=== PATIENT | female | born 1995 | race Caucasian/White ===

== ENCOUNTER 2022-12-29 23:20 | Emergency (ER) | payer OTHER, SELFPAY ==
[2022-12-29 23:21] VITALS: BP 118/89; PULSE 119; RESP 19; TEMP 36.8; O2SAT 100; BMI 25.4
[2022-12-29 23:33] VITALS: BP 152/92; PULSE 104; RESP 14; O2SAT 99
[2022-12-30] MEDS: Metoprolol(XL)Succ 25 MG Tablet 12.5 MG PO (00:44)
[2022-12-30 00:45] VITALS: BP 143/96; PULSE 95; RESP 16; O2SAT 100
--- NOTE | 2022-12-30 00:46 | RAD_ITS ---
EXAM: XR CHEST, 2 VIEWS CLINICAL INDICATION: chest pain TECHNIQUE: Frontal and lateral views of the chest. COMPARISON: No relevant prior studies available. FINDINGS: LUNGS AND PLEURAL SPACES: Unremarkable. No consolidation or edema. No pneumothorax. No effusion. HEART: Unremarkable. Cardiac silhouette not enlarged. MEDIASTINUM: Central airways and mediastinal contour are unremarkable. BONES/JOINTS: Unremarkable. SOFT TISSUES: Unremarkable. RAD/Chest PA and Lateral IMPRESSION: No radiographic evidence of acute cardiopulmonary disease. Electronically Signed: Rafiq Donaldson MD at 1:00 EDT ,
[2022-12-30 00:52] LABS: Absolute Lymphocyte Count 2.74 X10^3/uL (0.83-4.51); Absolute Neutrophil Count 7.7 X10^3/uL (2.0-7.7); Basophil# 0.04 X10^3/uL; Basophil% 0.4 % (0-1); Eosinophil# 0.01 X10^3/uL; Eosinophils% 0.1 % (0-5); Hematocrit 40.6 % (37-47); Hemoglobin 13.5 g/dL (12.0-15.0); Lymphocyte # 2.74 X10^3/ul (0.83-4.51); Lymphocyte % 24.9 % (19-41); Mean Corp Hgb Conc 33.3 g/dL (32-36); Mean Corpuscular Hgb 28.3 pg (27.0-32.0); Mean Corpuscular Volume 85.1 fL (81-99); Mean Platelet Vol. 10.5 fl (6.2-12.0); Monocyte# 0.44 X10^3/uL; NRBC Flagged by Analyzer 0 % (0-5); Neutrophil # 7.74 X10^3/uL (2.7-7.7); Neutrophil % 70.2 % (47-70); Platelet Count 287 K/mm3 (150-450); RBC Distribution Width SD 40.2 fl (35.1-43.9); Red Blood Count 4.77 M/mm3 (4.2-5.4)
[2022-12-30 00:56] LABS: Internal QC Validated? YES +Cl - CLEAR BKGD; Pregnancy, Serum, hCG Quali. NEGATIVE Negative
[2022-12-30 01:10] LABS: Anion Gap 9 (5-15); BUN 11 mg/dL (7-18); BUN/Creat Ratio 15.3 RATIO (10-20); Calcium,Total 9.6 mg/dL (8.5-10.1); Chloride 106 mmol/L (98-107); Creatinine, Serum 0.72 mg/dL (0.55-1.02); EST Glomerular Filtration Rate 104 mL/min (>60); Est Glom Filt Rate - Afr Amer 126 mL/min (>60); Estimated Creatinine Clearance 103.14 ml/min; Glucose 102 mg/dL (74-106); Magnesium 2.3 mg/dL (1.6-2.6); Potassium 3.4 mmol/L (3.5-5.1); Sodium Level 138 mmol/L (136-145); Thyroid Stim Hormone (TSH) 1.29 uIU/mL (0.358-3.74); Troponin-I HS < 3 pg/mL (3.0-54.0)
[2022-12-30 01:20] VITALS: BP 119/88; PULSE 82; RESP 16; O2SAT 99
--- NOTE | 2022-12-30 01:20 | EDS_ITS ---
HPI History of Present Illness Chief Complaint: Palpitations Informant: patient and spouse/S.O. Narrative Narrative: Patient is a 27-year-old female with past medical history of anxiety currently on sertraline. She states that she is been seeing her family doctor because she will have bouts where she has increased to her heart rate and feels chest tightness. She states that she believes is secondary to anxiety but her mother who is age 50 had a recent heart attack and that when she feels any discomfort she is concerned that she may developing a heart attack to. Her family doctor placed her on sertraline and recently increased the dose from 25 to 50 mg daily. Despite this patient is still having symptoms and therefore comes in for evaluation [facility] Medical History Anxiety GERD (gastroesophageal reflux disease) Home Medications sertraline 50 mg tablet 50 mg PO DAILY 12/29/22 [History Last Taken Unknown] metoprolol succinate 25 mg tablet,extended release 24 hr 12.5 mg PO DAILY 30 days #15 tabs 12/30/22 [Rx Last Taken Unknown] Allergy/AdvReac Type Severity Reaction Status Date / Time No Known Allergies Allergy Verified 12/29/22 23:21 Surgical History (Updated 12/29/22 @ 23:31 by Magaly Olvera) History of appendectomy Social History Smoking Status: Never smoker [facility] ED Constitutional Constitutional ED: Denies chills or fever(s) ENT ENT ED: Denies sore throat Cardiovascular Cardiovascular: Reports chest pain, palpitations and racing heartbeat Respiratory/Chest Respiratory/Chest: Denies cough or dyspnea Gastrointestinal Gastrointestinal: Denies abdominal pain, diarrhea, nausea or vomiting Genitourinary Genitourinary ED: Denies dysuria Musculoskeletal Musculoskeletal: Denies myalgias Integumentary Denies rash Neurologic Neurologic: Denies headache(s) Psychiatric Psychiatric: Reports anxiety; Denies suicidal ideation or suicidal thoughts Hematologic/Lymphatic Hematologic/Lymphatic: Denies easy bleeding or easy bruising EXAM Physical Exam Const Vital Signs: 12/29/22 23:21 12/29/22 23:33 12/30/22 00:45 Temperature 98.2 F Temperature Source Temporal Pulse Rate 119 H 104 H 95 Respiratory Rate 19 H 14 16 Blood Pressure 118/89 H 152/92 H 143/96 H Blood Pressure Mean 98 112 111 Pulse Ox 100 99 100 Oxygen Delivery Method Room Air Room Air Positive well nourished and well developed General Appearance ED: well developed HEENT Reports moist mucous membranes Eyes PERRL and EOMs intact bilaterally Neck supple Neck Narrative: No thyroid nodule or goiter noted Chest Wall palpation of chest normal Resp normal respiratory effort and clear to auscultation bilaterally Cardio regular rhythm Rate: tachycardic and other Other Details: Radial pulses are plus 2 out of 4 bilaterally are equal and symmetric No carotid bruit GI normal to inspection, nondistended, normoactive bowel sounds, non-tender, non- distended and no masses Auscultation: normoactive bowel sounds Palpation: soft Extremity normal to inspection Extremity Narrative: No asymmetric edema no pitting edema negative Homans' sign bilaterally Neuro oriented x3 and CN's II-XII intact bilaterally Sensorium / Orientation: alert Psych Psych Narrative: Patient has a nervous/anxious affect without homicidal or suicidal ideation Skin no rashes or lesions noted MDM MDM MDM Narrative Medical decision making narrative: Patient presented to the ER afebrile and normotensive with mild tachycardia. While at rest her heart rate improved to the mid 80s but as I walked into the room and she became nervous and anxious to heart rate jumped to approximate 120 once again. The patient has been diagnosed with anxiety by her family doctor but despite taking medication for this she has not had symptom control. Patient is low risk for acute coronary syndrome as her only risk factor is mother with history of ND. However as differential diagnosis does include cardiac dysrhythmia versus acute coronary syndrome versus anxiety or possible lung pathology such as pneumonia or pneumothorax I did elect to perform a basic cardiac work-up. Labs revealed no clinically significant findings and chest x- ray revealed no acute inflammatory or infectious pathology. As patient's been on sertraline with no improvement I did elect to try a low-dose beta-greer to control heart rate. It does seem that it has helped with heart rate holding between 85 to 95 bpm after medication. At this time as patient does not have signs of acute coronary syndrome electrolyte derangement or acute kidney injury and she is not homicidal or suicidal or requiring psychiatric evaluation she be placed on a rate control medication and can otherwise follow-up with family doctor for repeat evaluation History & Record Review Discussion w/independent historian: Patient and Significant other Lab Data Attestation: I reviewed the patient's lab results. Labs: Laboratory Results - last 24 hr 06/02/23 06/02/23 06/02/23 23:45 23:45 23:45 WBC 11.0 RBC 4.77 Hgb 13.5 Hct 40.6 MCV 85.1 MCH 28.3 MCHC 33.3 RDW Std Deviation 40.2 RDW Coeff of Humphrey 13.0 Plt Count 287 MPV 10.5 Immature Gran % (Auto) 0.400 Neut % (Auto) 70.2 H Lymph % (Auto) 24.9 [place] % (Auto) 4.0 Eos % (Auto) 0.1 Baso % (Auto) 0.4 Absolute Neuts (auto) 7.7 Absolute Lymphs (auto) 2.74 Nucleated RBC % 0 Sodium 138 Potassium 3.4 L Chloride 106 Carbon Dioxide 23.0 Anion Gap 9 BUN 11 Creatinine 0.72 Estim Creat Clear Calc 103.14 Est GFR (MDRD) Af Amer 126 Est GFR (MDRD) Non-Af 104 BUN/Creatinine Ratio 15.3 Glucose 102 Calcium 9.6 Magnesium 2.3 Troponin I High Sens < 3 L TSH 1.29 Serum , Qual NEGATIVE Radiography Diagnostic Testing: Clinical Impression(s) from Imaging Studies Chest X-Ray 12/30/22 00:46 IMPRESSION: No radiographic evidence of acute cardiopulmonary disease. Electronically Signed: Rafiq Donaldson MD at 1:00 EDT , Chest x-ray as interpreted by the emergency medicine physician reveals no acute infiltrate pneumothorax or pleural effusion Discharge Plan Triage Chief Complaint: Palpitations ED Provider: Rafiq Corrigan Dx/Rx/DC Orders Clinical Impression: Anxiety, Paroxysmal sinus tachycardia Instructions: Understanding Tachycardia, ED Palpitations Prescriptions: New metoprolol succinate 25 mg tablet extended release 24 hr 12.5 mg PO DAILY 30 Days Qty: 15 0RF No Action sertraline 50 mg Tablet 50 mg PO DAILY Primary Care Provider: La Liu Referrals: La Liu, [facility] [Primary Care Provider] - Activity Restrictions/Additional Instructions: Continue your sertraline for potential anxiety control. Begin taking the metoprolol as directed. After 1 week if the heart rate remains high and your blood pressure is stable at approximately 120-130/80-90 you may increase to 25 mg once a day. If you have any further concerns please return to the hospital for repeat evaluation Disposition Disposition: Home, Self Care
--- NOTE | 2022-12-30 01:21 | EKG12_ITS ---
Test Reason : PALPITATIONS Blood Pressure : / mmHG Vent. Rate : 104 BPM Atrial Rate : 104 BPM P-R Int : 142 ms QRS Dur : 080 ms QT Int : 340 ms P-R-T Axes : 063 080 047 degrees QTc Int : 447 ms Sinus tachycardia Otherwise normal ECG Confirmed by TRIP MANLEY, ALY ([id number]), editor farm journal JOSE KATZ ([id number]) on 01/02/2023 8:02:17 AM Referred By: CHANDU Confirmed By:ALY DOMINIQUE MD
--- NOTE | 2022-12-30 01:28 | ED.RN ---
NO OLD EKGS ON FILE
== END 2022-12-30 01:36 | disposition home or self-care (01) ==
PROVIDERS: Emergency Provider Emergency Medicine; PCP Nurse Practitioner Family; Visit Provider Emergency Medicine
DX: F41.9 Anxiety disorder, unspecified (principal); I47.1 Supraventricular tachycardia; K21.9 Gastro-esophageal reflux disease without esophagitis
CPT/HCPCS: 71046; 80048; 83735; 84443; 84484; 84703; 85025; 93005; 99283; A4216